=== PATIENT | male | born 1980 | race African-American/Black ===

== ENCOUNTER 2024-04-25 16:11 | Emergency (ER) | payer OTHER, SELFPAY ==
[2024-04-25 16:55] VITALS: BP 109/73; PULSE 80; RESP 18; TEMP 36.2; O2SAT 99
[2024-04-25 19:02] LABS: Influenza A QL RT-PCR Negative (Negative); Influenza B QL RT-PCR Negative (Negative); RSV RNA, RT-PCR Negative (Negative); SARS-CoV-2 RNA PCR Negative (Negative)
[2024-04-25] MEDS: KETOROLAC 10 MG TABLET PO (19:06)
[2024-04-25] MEDS: MAG HYDROX/AL HYDROX/SIMETH 30 ML UDC PO (19:07)
[2024-04-25] MEDS: LOPERAMIDE HCL 2 MG CAPSULE 4 MG PO (19:21)
[2024-04-25 19:27] VITALS: BP 110/70; PULSE 67; RESP 16; O2SAT 96
--- NOTE | 2024-04-25 19:55 | ED.NAVMDI ---
HPI - Nausea/Vomiting/Diarrhea General Chief complaint: Nausea/Vomiting/Diarrhea Stated complaint: TENA, diarrhea Time Seen by Provider: 04/25/24 18:17 History of Present Illness HPI Narrative: Patient presenting here with viral syndrome last week, he thinks that he may have eaten something that occurs. Has a headache, some nausea and diarrhea especially when he eats, Some stomach upset. Runny nose, sore throat, slight cough. Denies any chest pain or shortness of breath. Related Data Allergies Allergy/AdvReac Type Severity Reaction Status Date / Time No Known Allergies Allergy Verified 04/25/24 16:59 Review of Systems Review of Systems: All systems reviewed & are unremarkable except as noted in HPI and below Exam Narrative: EXAMINATION OF ORGAN SYSTEMS/BODY AREAS: Constitutional: Vital signs per nursing GENERAL:[No acute distress, non-toxic appearing.] HEAD: Normal with no signs of head trauma. EYES: EOMI, conjunctiva normal, PERRL ENT: Hearing grossly intact LUNGS: Nonlabored breathing. Clear to auscultation bilaterally. HEART: [Regular rate and rhythm] ABD: [Soft], [nontender to palpation] EXT: Normal range of motion SKIN: [No rashes or lesions.] NEURO: [Alert and oriented x 3. No gross focal sensory or strength deficits.] Clear speech, stable gait. PSYCH: Normal affect Course Vital Signs Vital signs: Vital Signs Temperature 97.2 F L 04/25/24 16:55 Pulse Rate 80 04/25/24 16:55 Respiratory Rate 18 04/25/24 16:55 Blood Pressure 109/73 04/25/24 16:55 Pulse Oximetry 99 04/25/24 16:55 Oxygen Delivery Room Air 04/25/24 16:55 Temperature 97.2 F L 04/25/24 16:55 Pulse Rate 67 04/25/24 19:27 Respiratory Rate 16 04/25/24 19:27 Blood Pressure 110/70 04/25/24 19:27 Pulse Oximetry 96 04/25/24 19:27 Oxygen Delivery Room Air 04/25/24 16:55 MDM - Nausea/Vomiting/Diarrhea MDM Narrative Medical decision making narrative: 43-year-old male presenting with viral syndrome, ongoing for the last week, he is otherwise very well-appearing, with clear lungs, normal airway, no neurologic deficits, abdomen soft nontender. Swabs obtained here for flu, COVID, RSV are negative. He is given symptomatic treatment but he declined any needles. I do feel he is stable for discharge with return precautions and follow-up to PCP, as he is being discharged he now wants me to know that sometimes when he has diarrhea he also will notice some discomfort in his testicles, he does not have pain in his testicles when he is hot having diarrhea, he has no dysuria or discharge, he has no concern for STDs. I did offer an exam which he declined, I did offer urinalysis which he declined. I have let him know he can follow up with his primary care doctor come back for any further issues. Lab Data Labs: Lab Results 04/25/24 Range/Units 18:19 Influenza A (RT-PCR) Negative (Negative) Influenza B (RT-PCR) Negative (Negative) RSV (RT-PCR) Negative (Negative) SARS-CoV-2 RNA (RT-PCR) Negative (Negative) Discharge Plan Discharge Clinical Impression: Acute viral syndrome Patient Disposition: Home, Self-Care Condition: Stable Instructions: Antibiotic Form, Viral Syndrome (ED) Additional Instructions: Please try to keep hydrated, take the medications as prescribed, and come back to the emergency room for any further issues. please follow-up with your primary care doctor. Prescriptions: New famotidine 20 mg tablet 20 mg PO DAILY Qty: 30 0RF alum-mag hydroxide-simeth [Maalox Advanced] 200-200-20 mg/5 mL suspension 10 ml PO QID PRN (Reason: dyspepsia) Qty: 120 0RF Rx Instructions: administer between meals and at bedtime ibuprofen 600 mg tablet 600 mg PO TID PRN (Reason: fever or pain) Qty: 30 0RF ondansetron 4 mg tablet,disintegrating 4 mg PO Q8H PRN (Reason: nausea and vomiting) Qty: 10 0RF fluticasone propionate [Allergy Relief (fluticasone)] 50 mcg/actuation spray,suspension 1 spray intranasal DAILY Qty: 16 0RF Rx Instructions: administer into each nostril loperamide 2 mg capsule 2 mg PO Q6H PRN (Reason: loose stool) Qty: 14 0RF Follow-up/Referrals: Nancy Fraga DO [Physician] - 2 Days PHYSICIAN NOT ON STAFF,NONSTAFF [Primary Care Provider] - Stand Alone Forms: Work/School Release IP
== END 2024-04-25 19:30 | disposition home or self-care (01) ==
PROVIDERS: Emergency Provider Emergency Medicine
DX: B34.9 Viral infection, unspecified (principal); Z20.822 Contact with and (suspected) exposure to COVID-19
CPT/HCPCS: 87637; 99283; A9270